=== PATIENT | male | born 1985 | race Caucasian/White ===

== ENCOUNTER 2022-08-13 14:15 | Emergency (ER) | payer BC ==
[~2022-08-13] VITALS: Ht 177.8 cm; Wt 99.8 kg
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
[2022-08-13] MEDS ORDERED: DOXY150T3 (14:47)
[2022-08-13] MEDS ORDERED: CLONAZEPAM (14:47)
--- NOTE | 2022-08-13 15:07 | NUR ---
patient seen by Dr. Vasquez. and xray has been taken
[2022-08-13] MEDS ORDERED: ACETAMINOPHEN 325 MG TABLET PO ONE (15:30)
[2022-08-13] MEDS ORDERED: IBUP-1955 PO (15:44)
--- NOTE | 2022-08-13 15:54 | NUR ---
Patient discharged to home in stable condition. Written and verbal after care instructions given. Patient verbalizes understanding of instructions. Stressed follow up or return to ER for worsening s/s.
--- NOTE | 2022-08-13 15:55 | NUR ---
discharge instructions understood, given and signed by patient.
[2022-08-13 15:56] VITALS: BP 129/81
== END 2022-08-13 15:57 | disposition home or self-care (01) ==
LOC: ER 14:17
DX: S80.11XA Contusion of right lower leg, initial encounter (principal); S20.219A Contusion of unspecified front wall of thorax, initial encounter; Z79.2 Long term (current) use of antibiotics; Z79.899 Other long term (current) drug therapy; V49.9XXA Car occupant (driver) (passenger) injured in unspecified traffic accident, initial encounter; Y93.89 Activity, other specified; Y92.410 Unspecified street and highway as the place of occurrence of the external cause; Y99.8 Other external cause status
CPT/HCPCS: 71045; 73590; A4663